=== PATIENT | female | born 1975 | race Caucasian/White ===

== ENCOUNTER 2017-07-11 07:39 | Inpatient (IN) | payer OTHER ==
[~2017-07-11] VITALS: Ht 158.8 cm; Wt 55.8 kg
[2017-07-13] MEDS ORDERED: LORAZEPAM 1 MG TABLET PO PRN ×2 (09:45)
[2017-07-13] MEDS ORDERED: ACETAMINOPHEN 325 MG TABLET PO PRN (09:45)
[2017-07-13] MEDS ORDERED: MAGNESIUM HYDROXIDE 30 ML LIQUID UDC PO PRN (09:45)
[2017-07-13] MEDS ORDERED: IBUPROFEN 400 MG TABLET PO PRN (09:45)
[2017-07-13] MEDS ORDERED: LOPERAMIDE HCL 2 MG CAPSULE PO PRN ×2 (09:45)
[2017-07-13] MEDS ORDERED: CLONIDINE HCL 0.1 MG TABLET PO PRN (09:45)
[2017-07-13] MEDS ORDERED: THIAMINE HCL 200 MG/2 ML VIAL IM ONE (09:45)
[2017-07-13] MEDS ORDERED: ONDANSETRON 4 MG/2 ML VIAL IM PRN (09:45)
[2017-07-13] MEDS ORDERED: MIRALAX 17 GM POWD.PACK PO PRN (09:45)
[2017-07-13] MEDS ORDERED: diphenhydrAMINE 50 MG CAPSULE PO PRN (09:45)
[2017-07-13] MEDS ORDERED: MAG HYDROX/AL HYDROX/SIMETH 30 ML LIQUID UDC PO PRN (09:45)
[2017-07-13] MEDS ORDERED: DICYCLOMINE HCL 20 MG TABLET PO PRN (09:45)
[2017-07-13] MEDS ORDERED: LORAZEPAM 2 MG/1 ML VIAL IM PRN (09:45)
[2017-07-13 10:00] VITALS: BP 104/61
[2017-07-13 10:23] LABS: *URINE HCG, QUAL NEGATIVE (NEGATIVE)
[2017-07-13 11:00] LABS: *AMPHETAMINE, URINE NEGATIVE (NEGATIVE); *BARBITURATE, URINE NEGATIVE (NEGATIVE); *CANNABINOID, URINE POSITIVE (NEGATIVE); *COCCAINE, URINE NEGATIVE (NEGATIVE); *OPIATE, URINE NEGATIVE (NEGATIVE); *PHENCYCLIDINE SCREEN,URINE NEGATIVE (NEGATIVE)
[2017-07-13 12:00] VITALS: BP 138/102
[2017-07-13] MEDS: ONDANSETRON ODT 4 MG TAB.RAPDIS SL PRN ×2 (12:42→20:16)
[2017-07-13 15:02] LABS: BASOPHILS # (AUTO) 0.1 K/uL (0.0-8.0); BASOPHILS % (AUTO) 1.2 % (0.0-2.0); EOSINOPHILS % (AUTO) 0.4 % (0.0-7.0); HEMATOCRIT 33.9 % (31.2-41.9); HEMOGLOBIN 10.7 g/dL (10.9-14.3); LYMPHOCYTES # (AUTO) 2.9 K/uL (20.0-40.0); LYMPHOCYTES % (AUTO) 47.8 % (20.5-51.5); MEAN CORPUSCULAR HEMOGLOBIN 21.3 uug (24.7-32.8); MEAN CORPUSCULAR HGB CONC 32 g/dL (32.3-35.6); MEAN CORPUSCULAR VOLUME 67.4 fL (75.5-95.3); MONOCYTES # (AUTO) 0.4 K/uL (2.0-10.0); MONOCYTES % (AUTO) 6.3 % (0.0-11.0); NEUTROPHILS # (AUTO) 2.6 K/uL (1.8-8.9); NEUTROPHILS % (AUTO) 44.3 % (38.5-71.5); PLATELET COUNT (AUTO) 351 K/uL (179-408); RED BLOOD CELL COUNT(AUTO) 5.02 MIL/uL (3.63-4.92)
[2017-07-13 15:20] LABS: THYROID STIMULATING HORMONE 0.357 mIU/mL (0.358-3.740)
[2017-07-13 15:22] LABS: BILIRUBIN,TOTAL 0.2 mg/dL (0.2-1.0); CREATININE 0.7 mg/dL (0.6-1.3); MAGNESIUM 1.6 mg/dL (1.8-2.4); POTASSIUM 3.6 mmol/L (3.5-5.1); TOTAL PROTEIN, SERUM 8.2 g/dL (6.4-8.2)
[2017-07-13 16:00] VITALS: BP 103/59
[2017-07-13] MEDS ORDERED: MAGNESIUM OXIDE 400 MG TABLET PO ONE (16:30)
[2017-07-13 20:00] VITALS: BP 99/71
[2017-07-13] MEDS: SERTRALINE HCL 100 MG TABLET PO SCH (20:10)
[2017-07-13] MEDS ORDERED: LORAZEPAM 1 MG TABLET PO SCH (21:00)
[2017-07-13 21:46] LABS: LYMPHOCYTES % (MANUAL) 45 % (20-40); MONOCYTES % (MANUAL) 8 % (2-10); NEUTROPHILS % (MANUAL) 47 % (42-75)
[2017-07-13 23:15] VITALS: BP 118/75
[2017-07-14 04:00] VITALS: BP 132/46
[2017-07-14] MEDS ORDERED: TUBERCULIN,PURIF.PROT.DERIV. 5 TU/0.1 ML TEST ID ONE (09:00)
[2017-07-14 09:09] VITALS: BP 124/65
[2017-07-14] MEDS: MULTIVITAMINS,THERAPEUTIC TABLET PO SCH (09:14)
[2017-07-14] MEDS: THIAMINE HCL 100 MG TABLET PO SCH (09:14)
[2017-07-14] MEDS: LORAZEPAM 1 MG TABLET PO SCH ×4 (09:14→20:42)
[2017-07-14] MEDS: FOLIC ACID 1 MG TABLET PO SCH (09:14)
[2017-07-14 09:23] LABS: CREATININE 0.7 mg/dL (0.6-1.3)
[2017-07-14 12:00] VITALS: BP 132/87
[2017-07-14 17:00] VITALS: BP 132/89
[2017-07-14] MEDS ORDERED: diphenhydrAMINE 50 MG CAPSULE PO PRN (19:30)
[2017-07-14 20:00] VITALS: BP 139/96
[2017-07-14] MEDS: SERTRALINE HCL 100 MG TABLET PO SCH (20:42)
[2017-07-14] MEDS: ONDANSETRON ODT 4 MG TAB.RAPDIS SL PRN (20:42)
[2017-07-14] MEDS ORDERED: QUETIAPINE FUMARATE 25 MG TABLET PO SCH (21:00)
[2017-07-14] MEDS ORDERED: LORAZEPAM 1 MG TABLET PO ONE (21:00)
[2017-07-14] MEDS ORDERED: QUETIAPINE FUMARATE 25 MG TABLET PO ONE (23:15)
[2017-07-14] MEDS ORDERED: QUETIAPINE FUMARATE 25 MG TABLET ONE (23:51)
[2017-07-15] VITALS: BP 116/78
[2017-07-15 04:00] VITALS: BP 109/87
[2017-07-15 08:00] VITALS: BP 116/83
[2017-07-15] MEDS: FOLIC ACID 1 MG TABLET PO SCH (08:32)
[2017-07-15] MEDS: MULTIVITAMINS,THERAPEUTIC TABLET PO SCH (08:32)
[2017-07-15] MEDS: THIAMINE HCL 100 MG TABLET PO SCH (08:32)
[2017-07-15] MEDS: LORAZEPAM 1 MG TABLET PO SCH ×3 (08:33→20:24)
[2017-07-15 08:46] LABS: BASOPHILS # (AUTO) 0.1 K/uL (0.0-8.0); BASOPHILS % (AUTO) 1.1 % (0.0-2.0); EOSINOPHILS % (AUTO) 0.5 % (0.0-7.0); HEMOGLOBIN 10.7 g/dL (10.9-14.3); LYMPHOCYTES # (AUTO) 2.3 K/uL (20.0-40.0); LYMPHOCYTES % (AUTO) 30.6 % (20.5-51.5); MEAN CORPUSCULAR HEMOGLOBIN 21.4 uug (24.7-32.8); MEAN CORPUSCULAR HGB CONC 31 g/dL (32.3-35.6); MEAN CORPUSCULAR VOLUME 68.1 fL (75.5-95.3); MONOCYTES # (AUTO) 0.5 K/uL (2.0-10.0); MONOCYTES % (AUTO) 7.3 % (0.0-11.0); NEUTROPHILS # (AUTO) 4.5 K/uL (1.8-8.9); NEUTROPHILS % (AUTO) 60.5 % (38.5-71.5); PLATELET COUNT (AUTO) 319 K/uL (179-408); WHITE BLOOD COUNT (AUTO) 7.4 K/uL (3.8-11.8)
[2017-07-15] MEDS ORDERED: QUETIAPINE FUMARATE 25 MG TABLET PO SCH ×2 (09:00→17:00)
[2017-07-15 09:10] LABS: THYROID STIMULATING HORMONE 1.649 mIU/mL (0.358-3.740)
[2017-07-15 09:25] LABS: CREATININE 0.7 mg/dL (0.6-1.3); MAGNESIUM 1.8 mg/dL (1.8-2.4); POTASSIUM 4.1 mmol/L (3.5-5.1)
[2017-07-15] MEDS ORDERED: LORAZEPAM 1 MG TABLET PO ONE (10:30)
[2017-07-15 11:32] LABS: BAND % (MANUAL) 1 % (0-10); BASOPHILS % (MANUAL) 1 % (0-2); EOSINOPHILS % (MANUAL) 1 % (0-8); LYMPHOCYTES % (MANUAL) 29 % (20-40); MONOCYTES % (MANUAL) 6 % (2-10); NEUTROPHILS % (MANUAL) 62 % (42-75)
[2017-07-15 12:00] VITALS: BP 127/82
[2017-07-15 14:08] LABS: HEPATITIS B SURFACE AG Negative (Negative)
[2017-07-15] MEDS ORDERED: LORAZEPAM 1 MG TABLET PO PRN ×2 (15:30)
[2017-07-15 16:00] VITALS: BP 142/71
[2017-07-15] MEDS: QUETIAPINE FUMARATE 100 MG TABLET PO SCH ×2 (16:45→20:23)
[2017-07-15 20:00] VITALS: BP 118/81
[2017-07-15] MEDS: SERTRALINE HCL 100 MG TABLET PO SCH (20:23)
[2017-07-15] MEDS: CLONIDINE HCL 0.1 MG TABLET PO SCH (20:24)
[2017-07-15] MEDS: GABAPENTIN 300 MG CAPSULE PO SCH (20:24)
[2017-07-16] VITALS: BP 92/60
[2017-07-16 04:00] VITALS: BP 91/62
[2017-07-16 08:00] VITALS: BP 94/61
[2017-07-16] MEDS: THIAMINE HCL 100 MG TABLET PO SCH (08:48)
[2017-07-16] MEDS: FOLIC ACID 1 MG TABLET PO SCH (08:48)
[2017-07-16] MEDS: GABAPENTIN 300 MG CAPSULE PO SCH ×3 (08:48→21:13)
[2017-07-16] MEDS: MULTIVITAMINS,THERAPEUTIC TABLET PO SCH (08:48)
[2017-07-16] MEDS: QUETIAPINE FUMARATE 100 MG TABLET PO SCH ×3 (08:51→21:12)
[2017-07-16] MEDS ORDERED: LORAZEPAM 1 MG TABLET PO SCH ×2 (09:00→21:00)
[2017-07-16] MEDS: CLONIDINE HCL 0.1 MG TABLET PO SCH ×2 (09:00→21:13)
[2017-07-16] MEDS ORDERED: LORAZEPAM 1 MG TABLET PO ONE (11:30)
[2017-07-16 12:00] VITALS: BP 95/62
[2017-07-16] MEDS: LORAZEPAM 1 MG TABLET PO SCH ×2 (13:48→16:40)
[2017-07-16 16:00] VITALS: BP 98/65
[2017-07-16 20:00] VITALS: BP 102/70
[2017-07-16] MEDS: SERTRALINE HCL 100 MG TABLET PO SCH (21:13)
[2017-07-17 08:00] VITALS: BP 100/60
[2017-07-17] MEDS: MULTIVITAMINS,THERAPEUTIC TABLET PO SCH (09:43)
[2017-07-17] MEDS: QUETIAPINE FUMARATE 100 MG TABLET PO SCH ×3 (09:43→21:36)
[2017-07-17] MEDS: FOLIC ACID 1 MG TABLET PO SCH (09:43)
[2017-07-17] MEDS: THIAMINE HCL 100 MG TABLET PO SCH (09:43)
[2017-07-17] MEDS: LORAZEPAM 1 MG TABLET PO SCH ×2 (09:43→15:31)
[2017-07-17] MEDS: GABAPENTIN 300 MG CAPSULE PO SCH ×2 (09:43→15:31)
[2017-07-17] MEDS: CLONIDINE HCL 0.1 MG TABLET PO SCH ×2 (09:44→22:39)
[2017-07-17 12:49] VITALS: BP 97/63
[2017-07-17 16:00] VITALS: BP 113/67
[2017-07-17] MEDS ORDERED: LORAZEPAM 1 MG TABLET PO SCH ×2 (17:00→21:00)
[2017-07-17 20:00] VITALS: BP 136/87
[2017-07-17] MEDS ORDERED: GABAPENTIN 300 MG CAPSULE PO SCH (21:00)
[2017-07-17] MEDS: SERTRALINE HCL 100 MG TABLET PO SCH (21:36)
[2017-07-18] VITALS: BP 97/69
[2017-07-18 08:00] VITALS: BP 117/67
[2017-07-18] MEDS: FOLIC ACID 1 MG TABLET PO SCH (08:54)
[2017-07-18] MEDS: GABAPENTIN 300 MG CAPSULE PO SCH ×3 (08:54→20:34)
[2017-07-18] MEDS: THIAMINE HCL 100 MG TABLET PO SCH (08:54)
[2017-07-18] MEDS: MULTIVITAMINS,THERAPEUTIC TABLET PO SCH (08:54)
[2017-07-18] MEDS: LORAZEPAM 1 MG TABLET PO SCH ×3 (08:54→20:34)
[2017-07-18] MEDS: CLONIDINE HCL 0.1 MG TABLET PO SCH ×2 (09:00→20:39)
[2017-07-18] MEDS ORDERED: LORAZEPAM 1 MG TABLET PO SCH (09:00)
[2017-07-18] MEDS: QUETIAPINE FUMARATE 100 MG TABLET PO SCH ×3 (09:58→20:34)
[2017-07-18 12:00] VITALS: BP 99/57
[2017-07-18 16:00] VITALS: BP 101/69
[2017-07-18 20:00] VITALS: BP 96/65
[2017-07-18] MEDS: SERTRALINE HCL 100 MG TABLET PO SCH (20:34)
[2017-07-19 08:00] VITALS: BP 92/58
[2017-07-19] MEDS ORDERED: LORAZEPAM 1 MG TABLET PO SCH (09:00)
[2017-07-19] MEDS: CLONIDINE HCL 0.1 MG TABLET PO SCH ×2 (09:36→21:51)
[2017-07-19] MEDS: FOLIC ACID 1 MG TABLET PO SCH (09:44)
[2017-07-19] MEDS: THIAMINE HCL 100 MG TABLET PO SCH (09:44)
[2017-07-19] MEDS: GABAPENTIN 300 MG CAPSULE PO SCH ×3 (09:44→21:51)
[2017-07-19] MEDS: QUETIAPINE FUMARATE 100 MG TABLET PO SCH ×3 (09:44→21:51)
[2017-07-19] MEDS: MULTIVITAMINS,THERAPEUTIC TABLET PO SCH (09:44)
[2017-07-19 12:14] VITALS: BP 93/72
[2017-07-19 16:38] VITALS: BP 142/95
[2017-07-19 20:00] VITALS: BP 102/73
[2017-07-19] MEDS ORDERED: SERT100T12 PO (20:19)
[2017-07-19] MEDS ORDERED: CLON0.1T14 PO (20:19)
[2017-07-19] MEDS ORDERED: GABA-534 PO (20:19)
[2017-07-19] MEDS ORDERED: HYDR-3895 PO (20:19)
[2017-07-19] MEDS ORDERED: QUET100T PO ×2 (20:19)
[2017-07-19] MEDS ORDERED: DIPH50CA37 PO (20:19)
[2017-07-19] MEDS: SERTRALINE HCL 100 MG TABLET PO SCH (21:51)
[2017-07-20] VITALS: BP 70/40
[2017-07-20 04:00] VITALS: BP 91/54
[2017-07-20] MEDS: CLONIDINE HCL 0.1 MG TABLET PO SCH (08:30)
[2017-07-20] MEDS: GABAPENTIN 300 MG CAPSULE PO SCH (08:31)
[2017-07-20] MEDS: MULTIVITAMINS,THERAPEUTIC TABLET PO SCH (08:31)
[2017-07-20] MEDS: FOLIC ACID 1 MG TABLET PO SCH (08:31)
[2017-07-20] MEDS: QUETIAPINE FUMARATE 100 MG TABLET PO SCH (08:31)
[2017-07-20] MEDS: THIAMINE HCL 100 MG TABLET PO SCH (08:31)
[2017-07-20 08:34] VITALS: BP 100/62
== END 2017-07-20 09:42 | disposition home or self-care (01) | DRG 895 ==
LOC: SRC 07-13 08:47
PROVIDERS: ADMIT Internal Medicine; ATTEND Internal Medicine
PROC: HZ2ZZZZ Detoxification Services for Substance Abuse Treatment (ICD-10-PCS; principal; 2017-07-13)
PROC: HZ41ZZZ Group Counseling for Substance Abuse Treatment, Behavioral (ICD-10-PCS; 2017-07-14)
PROC: HZ31ZZZ Individual Counseling for Substance Abuse Treatment, Behavioral (ICD-10-PCS; 2017-07-16)
DX: F10.232 Alcohol dependence with withdrawal with perceptual disturbance (principal); E83.42 Hypomagnesemia; I15.9 Secondary hypertension, unspecified; F31.9 Bipolar disorder, unspecified; D50.9 Iron deficiency anemia, unspecified; E07.81 Sick-euthyroid syndrome; F12.10 Cannabis abuse, uncomplicated; Z72.0 Tobacco use; Z81.1 Family history of alcohol abuse and dependence; Z90.49 Acquired absence of other specified parts of digestive tract; Y90.9 Presence of alcohol in blood, level not specified; Z91.89 Other specified personal risk factors, not elsewhere classified; Z66 Do not resuscitate; G47.00 Insomnia, unspecified; F41.9 Anxiety disorder, unspecified
CPT/HCPCS: 36415; 70030-TC; 80307; 80349; 82746; 83550; 83735; 84443; 84703; 85025; 86592; 86705; 86803; 87340; 87806; 93005; G0480; J2405; Q0162; Q0163